=== PATIENT | female | born 2000 | race Caucasian/White ===

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

== ENCOUNTER → 2022-06-07 | Outpatient (CLI) | payer OTHER ==
--- NOTE | 2022-06-08 08:17 | US ---
EXAMINATION TYPE: US pelvic complete DATE OF EXAM: 06/07/2022 COMPARISON: NONE CLINICAL HISTORY: N36.1. Hematuria. Patient is on control that stops menses. TECHNIQUE: Transabdominal (TA). Date of LMP: January 2022 EXAM MEASUREMENTS: Uterus: 6.9 x 3.5 x 2.8 cm Endometrial Stripe: 0.3 cm Right Ovary: 2.7 x 1.8 x 1.5 cm Left Ovary: 3.0 x 2.0 x 2.0 cm 1. Uterus: Anteverted wnl 2. Endometrium: wnl 3. Right Ovary: wnl 4. Left Ovary: wnl 5. Bilateral Adnexa: wnl 6. Posterior cul-de-sac: no free fluid Urinary bladder somewhat lucent. Posterior wall is normal. IMPRESSION: 1. Unremarkable pelvic ultrasound
== END | disposition home or self-care (01) ==
LOC: RADUSWWP 15:53
PROVIDERS: ATTEND Urology
DX: N36.1 Urethral diverticulum (principal)
CPT/HCPCS: 76856

== ENCOUNTER → 2022-06-21 | Outpatient (CLI) | payer OTHER ==
--- NOTE | 2022-06-21 09:15 | US ---
EXAMINATION TYPE: US kidneys/renal and bladder DATE OF EXAM: 06/21/2022 COMPARISON: NONE CLINICAL HISTORY: R31.0 GROSS HEMATURIA. gross hematuria x 2 months, EXAM MEASUREMENTS: Right Kidney: 11.4 x 4.5 x 4.4 cm Left Kidney: 12.1 x 4.7 x 5.8 cm Right Kidney: mild renal pelvis Left Kidney: No hydronephrosis or masses seen Bladder: wnl Bilateral Jets seen: Yes There is no evidence for hydronephrosis at this point in time. No nephrolithiasis is seen. No yinka s are identified. The urinary bladder is anechoic. Bilateral ureteral jets are seen. IMPRESSION: 1. Minimal prominence of the right renal pelvis. Consider mild hydronephrosis.
== END | disposition home or self-care (01) ==
LOC: RADUSWWP 06:48
PROVIDERS: ATTEND Urology
DX: N13.30 Unspecified hydronephrosis (principal); N28.89 Other specified disorders of kidney and ureter; R31.0 Gross hematuria
CPT/HCPCS: 76770

== ENCOUNTER 2023-04-20 08:03 | Emergency (ER) | payer OTHER ==
[2023-04-20] MEDS ORDERED: ORPHENADRINE 30 MG/ML 2 ML VIAL IVP STA (08:45)
[2023-04-20] MEDS ORDERED: KETOROLAC 15 MG/ML 1 ML VIAL IVP STA (08:45)
[2023-04-20] MEDS ORDERED: methylPREDNISolone SOD SUCCI 125 MG/2 ML VIAL IV STA (08:45)
--- NOTE | 2023-04-20 09:38 | XR ---
EXAMINATION TYPE: XR lumbar spine 3V DATE OF EXAM: 04/20/2023 Comparison: None Clinical History: 22-year-old female pain for a day after lifting injury Findings: 5 lumbar type vertebral bodies. Slight dextroconvexed curvature of the lumbar spine. Vertebral body h eights are preserved and alignment is maintained. There may be mild early degenerative disc space lenin rowing L4-L5 and L5-S1. Impression: 1. There may be mild early degenerative disc space narrowing L4-L5 and L5-S1. 2. No vertebral compression collapse or malalignment. 3. Slight dextroconvex curvature of the lumbar spine may be positional or due to muscle spasm.
--- NOTE | 2023-04-20 09:50 | ED ---
Back Pain HPI - General Chief Complaint: Back Pain/Injury Stated Complaint: [facility] Lower back pain Time Seen by Provider: 04/20/23 08:09 Source: patient, family, RN notes reviewed Limitations: no limitations - History of Present Illness Initial Comments: 22-year-old female presents emergency department with chief complaint of low back pain. 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 She has no lower extremity weakness denies any radicular symptoms denies saddle anesthesias or lower extremity paresthesias. - Related Data Previous Rx's Medication Instructions Recorded Ibuprofen 400 mg PO Q8HR PRN #30 tablet 09/25/16 Cyclobenzaprine [Flexeril] 10 mg PO TID PRN #15 tab 04/20/23 Ibuprofen [Motrin] 600 mg PO Q8HR PRN #20 tab 04/20/23 predniSONE 50 mg PO DAILY #3 tab 04/20/23 Allergies Allergy/AdvReac Type Severity Reaction Status Date / Time metoclopramide [From Reglan] Allergy Unknown Verified 04/20/23 08:13 Review of Systems ROS Statement: Those systems with pertinent positive or pertinent negative responses have been documented in the HPI. ROS Other: All systems not noted in ROS Statement are negative. Past Medical History Past Medical History: Unable to Obtain, Pneumonia History of Any Multi-Drug Resistant Organisms: None Reported Past Surgical History: No Surgical Hx Reported Past Psychological History: No Psychological Hx Reported Past Alcohol Use History: None Reported Past Drug Use History: None Reported General Exam Limitations: no limitations General appearance: alert, in no apparent distress Head exam: Present: atraumatic, normocephalic, normal inspection Eye exam: Present: normal appearance, PERRL, EOMI. Absent: scleral icterus, conjunctival injection, periorbital swelling ENT exam: Present: normal exam, normal oropharynx, mucous membranes moist Neck exam: Present: normal inspection, full ROM. Absent: tenderness, meningismus, lymphadenopathy Respiratory exam: Present: normal lung sounds bilaterally. Absent: respiratory distress, wheezes, rales, rhonchi, stridor Cardiovascular Exam: Present: regular rate, normal rhythm, normal heart sounds. Absent: systolic murmur, diastolic murmur, rubs, gallop, clicks GI/Abdominal exam: Present: soft, normal bowel sounds. Absent: distended, tenderness, guarding, rebound, rigid Extremities exam: Present: normal inspection, full ROM, normal capillary refill. Absent: tenderness, pedal edema, joint swelling, calf tenderness Back exam: Present: tenderness, paraspinal tenderness, vertebral tenderness. Absent: full ROM Neurological exam: Present: reflexes normal. Absent: motor sensory deficit Course Vital Signs 04/20/23 04/20/23 04/20/23 08:07 09:45 10:43 Temperature 98.9 F 98.2 F 98.1 F Pulse Rate 99 88 81 Respiratory 16 18 18 Rate Blood Pressure 136/93 115/79 124/89 O2 Sat by Pulse 99 99 Oximetry Medical Decision Making - Medical Decision Making Was pt. sent in by a medical professional or institution ([facility], [facility], urgent care, hospital, or retirement...) When possible be specific @ -No Did you speak to anyone other than the patient for history (EMS, parent, family, police, friend...)? What history was obtained from this source @ -No Did you review nursing and triage notes (agree or disagree)? Why? @ -I reviewed and agree with nursing and triage notes Were old charts reviewed (outside hosp., previous admission, EMS record, old EKG, old radiological studies, urgent care reports/EKG's, retirement records)? Report findings @ -No old charts were reviewed Differential Diagnosis (chest pain, altered mental status, abdominal pain women, abdominal pain men, vaginal bleeding, weakness, fever, dyspnea, syncope, headache, dizziness, GI bleed, back pain, seizure, CVA, palpatations, mental health, musculoskeletal)? @ -[ differential Chest Pain: Stable Angina, Unstable Angina, STEMI, NSTEMI Aortic Dissection, Pneumothorax, Musculoskeletal, Esophageal Spasm GERD, Cholecystitis, Pancreatitis, Zoster, this is not meant to be an all-inclusive list. EKG interpreted by me (3pts min.). @ -As above X-rays interpreted by me (1pt min.). @ -[X-ray lumbar spine showing degenerative changes L4-L5 L5-S1 CT interpreted by me (1pt min.). @ -None done U/S interpreted by me (1pt. min.). @ -None done What testing was considered but not performed or refused? (CT, X-rays, U/S, labs)? Why? @ -None What meds were considered but not given or refused? Why? @ -None Did you discuss the management of the patient with other professionals (professionals i.e. , PA, [facility], lab, RT, psych nurse, social media community manager, agency appointments supervisor, teacher, air antisubmarine officer, case management rn)? Give summary @ -No Was smoking cessation discussed for >3mins.? @ -No Was critical care preformed (if so, how long)? @ -No Were there social determinants of health that impacted care today? How? (Homelessness, low income, unemployed, alcoholism, drug addiction, transportation, low edu. Level, literacy, decrease access to med. care, residential, rehab)? @ -No Was there de-escalation of care discussed even if they declined (Discuss DNR or withdrawal of care, Hospice)? DNR status @ -No What co-morbidities impacted this encounter? (DM, HTN, Smoking, COPD, CAD, Cancer, CVA, ARF, Chemo, Hep., AIDS, mental health diagnosis, sleep apnea, morbid obesity)? @ -None Was patient admitted / discharged? Hospital course, mention meds given and route, prescriptions, significant lab abnormalities, going to OR and other pertinent info. @ -[Discharge patient felt improved after Toradol, Norflex. She has no red flag symptoms. Patient will be referred to orthopedics return brands were discussed. Undiagnosed new problem with uncertain prognosis? @ -No Drug Therapy requiring intensive monitoring for toxicity (Heparin, Nitro, Insulin, Cardizem)? @ -No Were any procedures done? @ -No Diagnosis/symptom? @ -[Lumbar strain Acute, or Chronic, or Acute on Chronic? @ -Acute Uncomplicated (without systemic symptoms) or Complicated (systemic symptoms)? @ -[Uncomplicated Side effects of treatment? @ -[No Exacerbation, Progression, or Severe Exacerbation? @ -No Poses a threat to life or bodily function? How? (Chest pain, [place], [place], pneumonia, PE, COPD, DKA, ARF, appy, cholecystitis, CVA, Diverticulitis, Homicidal, Suicidal, threat to staff... and all critical care pts) @ -No Disposition Clinical Impression: Lumbar strain, Lumbar degenerative disc disease Disposition: HOME SELF-CARE Condition: Stable Instructions (If sedation given, give patient instructions): Acute Low Back Pain (ED) Additional Instructions: Please return to the Emergency Department if symptoms worsen or any other concerns. Prescriptions: Cyclobenzaprine [Flexeril] 10 mg PO TID PRN #15 tab PRN Reason: Muscle Spasm Ibuprofen [Motrin] 600 mg PO Q8HR PRN #20 tab PRN Reason: Pain predniSONE 50 mg PO DAILY #3 tab Is patient prescribed a controlled substance at d/c from ED?: No Referrals: Jacqueline Harding MD [Primary Care Provider] - 1-2 days Jeferson Moulton DO [Doctor of Osteopathic Medicine] - 1-2 days Time of Disposition: 10:26
[2023-04-20 10:01] VITALS: RESP 18
[2023-04-20 10:58] VITALS: BP 124/89; PULSE 81; TEMP 98.1
== END 2023-04-20 10:46 | disposition home or self-care (01) ==
LOC: EC 08:03
DX: S39.012A Strain of muscle, fascia and tendon of lower back, initial encounter (principal); Z88.8 Allergy status to other drugs, medicaments and biological substances; X58.XXXA Exposure to other specified factors, initial encounter
CPT/HCPCS: 72100; 99283; 96374; 96375 ×2; J2360; J2930; J1885